=== PATIENT | female | born 1955 | race Two or more races ===

== ENCOUNTER 2018-09-27 19:44 | Emergency (ER) | payer MEDICAID, OTHER ==
[~2018-09-27] VITALS: Ht 160 cm; Wt 68.0 kg
[2018-09-28 03:22] VITALS: BP 125/71
== END 2018-09-28 04:32 | disposition home or self-care (01) ==
LOC: ER 19:48
DX: S16.1XXA Strain of muscle, fascia and tendon at neck level, initial encounter (principal); S39.012A Strain of muscle, fascia and tendon of lower back, initial encounter; E11.9 Type 2 diabetes mellitus without complications; E78.5 Hyperlipidemia, unspecified; I10 Essential (primary) hypertension; W10.0XXA Fall (on)(from) escalator, initial encounter; Y93.89 Activity, other specified; Y92.89 Other specified places as the place of occurrence of the external cause; Y99.8 Other external cause status
CPT/HCPCS: 70450; 72100; 72125